=== PATIENT | female | born 1980 | race Two or more races ===

== ENCOUNTER 2019-01-14 11:15 | Emergency (ER) | payer MEDICARE, MEDICAID ==
[~2019-01-14] VITALS: Ht 167.6 cm; Wt 76.8 kg
[~2019-01-14 11:15] MED LIST: AMIT-189 PO; CALC500T43 PO; CLA10T PO; DIVA-81 PO; DOCU100T2 PO; HYDR-2561 PO; LISI-222 PO; LUBI24CA5 PO; PANT-47 PO; POLY17PO10 PO; ZOLP6.2523 PO; [UNRECOGNIZED DRUG - OTHER] PO
[2019-01-14] MEDS ORDERED: LIDOcaine 1% W/epiNEPHrine 1:100,000 20ml vial ONE (12:00)
[2019-01-14] MEDS ORDERED: TETanus/Pertussis (Acell)/Diphther VAC/PF (Tdap-Adult) 0.5ml syringe IMVAC ONE (12:20)
[2019-01-14 14:32] VITALS: BP 135/79
== END 2019-01-14 13:50 | disposition home or self-care (01) ==
LOC: ER 11:15
DX: S61.211A Laceration without foreign body of left index finger without damage to nail, initial encounter (principal); S01.81XA Laceration without foreign body of other part of head, initial encounter; Z88.6 Allergy status to analgesic agent; Z88.5 Allergy status to narcotic agent; Z79.899 Other long term (current) drug therapy; W01.198A Fall on same level from slipping, tripping and stumbling with subsequent striking against other object, initial encounter; Y93.01 Activity, walking, marching and hiking; Y92.89 Other specified places as the place of occurrence of the external cause; Y99.9 Unspecified external cause status
CPT/HCPCS: 12001; 90471; 99284

== ENCOUNTER 2021-05-16 17:53 | Emergency (ER) | payer MEDICARE, MEDICAID ==
[~2021-05-16] VITALS: Ht 167.6 cm; Wt 80.0 kg
[~2021-05-16 17:53] MED LIST changes: +CALC-932 PO; -CALC500T43 PO
[2021-05-16 19:35] LABS: BASOPHILS % (AUTO) 0.7 % (0-1); EOSINOPHILS % (AUTO) 0.6 % (0-6); HEMATOCRIT 41.5 % (35.0-45.0); HEMOGLOBIN 14.1 g/dl (12.0-16.0); LYMPHOCYTES # (AUTO) 1.5 X10'3 (1.1-4.8); LYMPHOCYTES % (AUTO) 20.6 % (21-51); MEAN CORPUSCULAR HEMOGLOBIN 33.5 PG (27.0-31.0); MEAN CORPUSCULAR VOLUME 98.7 FL (78-98); MEAN PLATELET VOLUME 7.3 FL (7.4-10.4); MONOCYTES # (AUTO) 0.9 X10'3 (0-0.9); NEUTROPHILS # (AUTO) 4.8 X10'3 (1.8-7.7); NEUTROPHILS % (AUTO) 66.1 % (42-75); PLATELET COUNT 243 X10'3 (140-440); RED CELL DISTRIBUTION WIDTH 13.9 % (11.5-14.5); WHITE BLOOD COUNT 7.3 X10'3 (4.5-11.0)
[2021-05-16 19:50] LABS: ALANINE AMINOTRANSFERASE 74 U/L (12-78); ALBUMIN 3.4 G/DL (3.4-5.0); ALBUMIN/GLOBULIN RATIO 0.8 (1.1-1.5); ALKALINE PHOSPHATASE 49 IU/L (46-116); ANION GAP 9 (8-16); ASPARTATE AMINO TRANSFERASE 76 U/L (10-37); BILIRUBIN,TOTAL 0.4 MG/DL (0.1-1.0); BLOOD UREA NITROGEN 19 MG/DL (7-18); CALCIUM 9.1 MG/DL (8.5-10.1); CHLORIDE 103 MMOL/L (99-107); CREATININE 0.95 MG/DL (0.40-0.90); GLUCOSE 113 MG/DL (70-104); POTASSIUM 4.2 MMOL/L (3.5-5.1); SODIUM 139 MMOL/L (135-145); TOTAL CARBON DIOXIDE 26.7 MMOL/L (24-32); TOTAL PROTEIN 7.6 G/DL (6.4-8.2); eGFR 65 ML/MIN
[2021-05-16 19:53] LABS: CLARITY,URINE SLIGHTLY CLOUDY (Clear); COLOR,URINE YELLOW (Yellow); GLUCOSE, URINE NEGATIVE (Neg); KETONES,URINE NEGATIVE (Neg); LEUKOCYTE ESTERASE ,URINE NEGATIVE (Neg); NITRITES, URINE NEGATIVE (Neg); OCCULT BLOOD,URINE TRACE-INTACT (Neg); PROTEIN,URINE NEGATIVE (Neg); UROBILINOGEN,URINE 0.2 E.U/dL (0.2-1.0)
[2021-05-16 19:54] LABS: URINE HCG NEGATIVE (NEG)
[2021-05-16 19:57] LABS: UA COLLECTION TYPE CLN CATCH MIDSTREAM
[2021-05-16 20:07] LABS: URINE AMPHETAMINE SCREEN NEGATIVE (Neg); URINE BARBITUATE SCREEN NEGATIVE (Neg); URINE BENZODIAZEPINES SCREEN NEGATIVE (Neg); URINE CANNABINOID SCREEN NEGATIVE (Neg); URINE COCAINE SCREEN NEGATIVE (Neg); URINE METHADONE SCREEN NEGATIVE (Neg); URINE OPIATE SCREEN NEGATIVE (Neg); URINE PHENCYCLIDINE SCREEN NEGATIVE (Neg)
[2021-05-16 20:12] LABS: ETHANOL < 0.010 GM/DL (0.0-0.010)
[2021-05-16 20:13] LABS: BACTERIA,URINE FEW /HPF (Neg); MUCUS STRANDS FEW /LPF (Neg); SQUAMOUS EPITHELIAL CELL,UR FEW /LPF (FEW)
[2021-05-16 20:14] LABS: RBC,URINE 0-2 /HPF (0-2); WBC,URINE 0-4 /HPF (0-4)
[2021-05-16 21:54] VITALS: BP 122/90
== END 2021-05-16 21:30 | disposition home or self-care (01) ==
LOC: ER 17:53
DX: R45.6 Violent behavior (principal); Z20.822 Contact with and (suspected) exposure to COVID-19; G80.9 Cerebral palsy, unspecified; F31.9 Bipolar disorder, unspecified; Z88.8 Allergy status to other drugs, medicaments and biological substances; Z79.899 Other long term (current) drug therapy
CPT/HCPCS: 36415; 80053; 80305; 80320; 81001; 81025; 84443; 85025; 87635; 99285; C9803; 99283

== ENCOUNTER 2022-08-12 16:21 | Emergency (ER) | payer MEDICARE, MEDICAID ==
[~2022-08-12] VITALS: Ht 167.6 cm; Wt 80.9 kg
[~2022-08-12 16:21] MED LIST changes: -AMIT-189 PO; +AMIT50TA15 PO
[2022-08-12 17:46] LABS: BASOPHILS # (AUTO) 0.1 X10'3 (0-0.2); BASOPHILS % (AUTO) 1.1 % (0-1); EOSINOPHILS # (AUTO) 0.1 X10'3 (0-0.9); EOSINOPHILS % (AUTO) 1.2 % (0-6); HEMATOCRIT 40.2 % (35.0-45.0); HEMOGLOBIN 13.8 g/dl (12.0-16.0); LYMPHOCYTES # (AUTO) 1.5 X10'3 (1.1-4.8); LYMPHOCYTES % (AUTO) 30.7 % (21-51); MEAN CORPUSCULAR HEMOGLOBIN 34.8 PG (27.0-31.0); MEAN CORPUSCULAR HGB CONC 34.3 g/dL (33.0-36.5); MEAN CORPUSCULAR VOLUME 101.5 FL (78-98); MEAN PLATELET VOLUME 7.3 FL (7.4-10.4); MONOCYTES # (AUTO) 0.7 X10'3 (0-0.9); MONOCYTES % (AUTO) 13.5 % (2-12); NEUTROPHILS # (AUTO) 2.7 X10'3 (1.8-7.7); NEUTROPHILS % (AUTO) 53.5 % (42-75); PLATELET COUNT 240 X10'3 (140-440); RED BLOOD COUNT 3.96 X10'6 (4.20-5.60); RED CELL DISTRIBUTION WIDTH 13.5 % (11.5-14.5)
[2022-08-12 17:52] LABS: ETHANOL < 0.010 GM/DL (0.0-0.010); TOTAL CARBON DIOXIDE 27.4 MMOL/L (24-32)
[2022-08-12 18:35] LABS: ALANINE AMINOTRANSFERASE 54 U/L (12-78); ALBUMIN 3.4 G/DL (3.4-5.0); ALBUMIN/GLOBULIN RATIO 0.8 (1.1-1.5); ALKALINE PHOSPHATASE 53 IU/L (46-116); ANION GAP 11 (8-16); ASPARTATE AMINO TRANSFERASE 55 U/L (10-37); BILIRUBIN,TOTAL 0.4 MG/DL (0.1-1.0); BLOOD UREA NITROGEN 16 MG/DL (7-18); BUN/CREATININE RATIO 17.6 (10.0-20.0); CALCIUM 9.5 MG/DL (8.5-10.1); CHLORIDE 100 MMOL/L (99-107); CREATININE 0.91 MG/DL (0.40-0.90); GLUCOSE 181 MG/DL (70-104); POTASSIUM 4.3 MMOL/L (3.5-5.1); SODIUM 138 MMOL/L (135-145); TOTAL PROTEIN 7.5 G/DL (6.4-8.2); eGFR 68 ML/MIN
[2022-08-12 20:33] LABS: COLOR,URINE YELLOW (Yellow); GLUCOSE, URINE NEGATIVE (Neg); KETONES,URINE NEGATIVE (Neg); LEUKOCYTE ESTERASE ,URINE NEGATIVE (Neg); NITRITES, URINE NEGATIVE (Neg); OCCULT BLOOD,URINE TRACE-INTACT (Neg); PROTEIN,URINE NEGATIVE (Neg); URINE HCG NEGATIVE (NEG); UROBILINOGEN,URINE 0.2 E.U/dL (0.2-1.0)
[2022-08-12 20:38] LABS: CLARITY,URINE SLIGHTLY CLOUDY (Clear); UA COLLECTION TYPE CLN CATCH MIDSTREAM
[2022-08-12 20:39] LABS: SQUAMOUS EPITHELIAL CELL,UR MANY /LPF (FEW)
[2022-08-12 20:40] LABS: BACTERIA,URINE 1+ /HPF (Neg); RBC,URINE 0-2 /HPF (0-2); WBC,URINE 0-4 /HPF (0-4)
[2022-08-12 20:54] LABS: URINE AMPHETAMINE SCREEN NEGATIVE (Neg); URINE BARBITUATE SCREEN NEGATIVE (Neg); URINE BENZODIAZEPINES SCREEN NEGATIVE (Neg); URINE CANNABINOID SCREEN NEGATIVE (Neg); URINE COCAINE SCREEN NEGATIVE (Neg); URINE METHADONE SCREEN NEGATIVE (Neg); URINE OPIATE SCREEN NEGATIVE (Neg); URINE PHENCYCLIDINE SCREEN NEGATIVE (Neg)
[2022-08-13 07:20] VITALS: BP 168/111
--- NOTE | 2022-08-13 10:29 | NUR ---
long-term and threatening to kill staff. "Danger to Others". [id number] by . Needs help to BR. Denies SI/HI at this time.
--- NOTE | 2022-08-13 10:50 | NUR ---
[facility], Sander, speaking with patient. Patient crying to Sander that she wants to go home. Sander explains that she cannot threaten to kill people. Patient verbalized understanding and promised she wouldn't do it again. Sander advises RN that this is all behavioral. Sander will speak to the long term to see if she is allowed back. Continue to monitor patient.
== END 2022-08-13 12:20 | disposition home or self-care (01) ==
LOC: ER 16:21
DX: F31.9 Bipolar disorder, unspecified (principal); G80.9 Cerebral palsy, unspecified; F79 Unspecified intellectual disabilities; Z88.5 Allergy status to narcotic agent; Z88.8 Allergy status to other drugs, medicaments and biological substances; Z79.1 Long term (current) use of non-steroidal anti-inflammatories (NSAID); Z79.2 Long term (current) use of antibiotics
CPT/HCPCS: 36415; 80053; 80305; 80320; 81001; 81025; 84443; 85025; 99285

== ENCOUNTER 2023-03-17 23:18 | Emergency (ER) | payer MEDICARE, MEDICAID ==
[~2023-03-17] VITALS: Ht 167.6 cm; Wt 79.1 kg
[2023-03-17 23:55] LABS: BASOPHILS # (AUTO) 0.1 X10'3 (0-0.2); BASOPHILS % (AUTO) 0.7 % (0-1); EOSINOPHILS # (AUTO) 0.1 X10'3 (0-0.9); EOSINOPHILS % (AUTO) 0.7 % (0-6); HEMATOCRIT 39.2 % (35.0-45.0); HEMOGLOBIN 13.9 g/dl (12.0-16.0); LYMPHOCYTES # (AUTO) 2.7 X10'3 (1.1-4.8); MEAN CORPUSCULAR HEMOGLOBIN 34.9 PG (27.0-31.0); MEAN CORPUSCULAR HGB CONC 35.5 g/dL (33.0-36.5); MEAN CORPUSCULAR VOLUME 98.5 FL (78-98); MEAN PLATELET VOLUME 7.3 FL (7.4-10.4); MONOCYTES # (AUTO) 0.8 X10'3 (0-0.9); NEUTROPHILS # (AUTO) 4.8 X10'3 (1.8-7.7); NEUTROPHILS % (AUTO) 56.6 % (42-75); PLATELET COUNT 307 X10'3 (140-440); RED BLOOD COUNT 3.98 X10'6 (4.20-5.60); RED CELL DISTRIBUTION WIDTH 13.9 % (11.5-14.5); WHITE BLOOD COUNT 8.4 X10'3 (4.5-11.0)
[2023-03-17 23:57] LABS: URINE HCG NEGATIVE (NEG)
[2023-03-18 00:04] LABS: TOTAL CARBON DIOXIDE 24.9 MMOL/L (24-32)
[2023-03-18 00:08] LABS: URINE AMPHETAMINE SCREEN NEGATIVE (Neg); URINE BARBITUATE SCREEN NEGATIVE (Neg); URINE BENZODIAZEPINES SCREEN NEGATIVE (Neg); URINE CANNABINOID SCREEN NEGATIVE (Neg); URINE COCAINE SCREEN NEGATIVE (Neg); URINE METHADONE SCREEN NEGATIVE (Neg); URINE OPIATE SCREEN NEGATIVE (Neg); URINE PHENCYCLIDINE SCREEN NEGATIVE (Neg)
[2023-03-18 00:41] LABS: ALANINE AMINOTRANSFERASE 63 U/L (12-78); ALBUMIN 3.5 G/DL (3.4-5.0); ALBUMIN/GLOBULIN RATIO 0.8 (1.1-1.5); ALKALINE PHOSPHATASE 62 IU/L (46-116); ANION GAP 9 (8-16); ASPARTATE AMINO TRANSFERASE 88 U/L (10-37); BILIRUBIN,TOTAL 0.5 MG/DL (0.1-1.0); BLOOD UREA NITROGEN 17 MG/DL (7-18); BUN/CREATININE RATIO 24.3 (10.0-20.0); CALCIUM 10.1 MG/DL (8.5-10.1); CHLORIDE 101 MMOL/L (99-107); GLUCOSE 153 MG/DL (70-104); SODIUM 135 MMOL/L (135-145); THYROID STIMULATING HORMONE 3.44 ulU/ml (0.34-4.50); TOTAL PROTEIN 8.1 G/DL (6.4-8.2); eCRCL 99 ML/MIN; eGFR > 90 ML/MIN
[2023-03-18 00:43] LABS: ETHANOL < 10 MG/DL (<10)
[2023-03-18 06:05] VITALS: BP_DIAS 88; RESP 18; O2SAT 97
[2023-03-18] MEDS ORDERED: LORA10TA7 PO (07:17)
[2023-03-18] MEDS ORDERED: LISI1TAB49 PO (07:17)
[2023-03-18] MEDS ORDERED: HALO2TAB PO (07:17)
[2023-03-18] MEDS ORDERED: ZOLP5TAB8 PO (09:04)
[2023-03-18] MEDS ORDERED: hydrOXYzine 25 MG tablet PO PRN (09:05)
[2023-03-18] MEDS: loratadine 10mg tablet PO SCH (10:36)
[2023-03-18] MEDS: calcium carbonate 500mg tablet PO SCH (10:36)
[2023-03-18] MEDS: divalproex sod 250mg ER (24-hour) tablet PO SCH (10:36)
[2023-03-18] MEDS: haloperidol 1mg tablet PO SCH (10:36)
[2023-03-18 10:37] VITALS: BP_SYST 150; PULSE 83
[2023-03-18] MEDS: lisinopril 5mg tablet PO SCH (10:37)
[2023-03-18] MEDS: docusate sod 100mg capsule PO PRN (10:38)
[2023-03-18 17:04] VITALS: TEMP 98.4
[2023-03-18] MEDS ORDERED: lubiprostone 24mcg capsule PO SCH (20:00)
[2023-03-18] MEDS ORDERED: zolpidem 5mg tablet PO SCH (21:00)
== END 2023-03-18 17:06 | disposition home or self-care (01) ==
LOC: ER 23:19
DX: G31.84 Mild cognitive impairment of uncertain or unknown etiology (principal); Z20.822 Contact with and (suspected) exposure to COVID-19; F31.9 Bipolar disorder, unspecified; Z88.8 Allergy status to other drugs, medicaments and biological substances; Z79.899 Other long term (current) drug therapy
CPT/HCPCS: 36415; 80053; 80305; 80320; 81025; 84443; 85025; 87811; 99285

== ENCOUNTER 2024-03-06 21:33 | Emergency (ER) | payer MEDICARE, MEDICAID ==
[~2024-03-06] VITALS: Ht 167.6 cm; Wt 80.5 kg
[~2024-03-06 21:33] MED LIST changes: +ZOLP5TAB8 PO; -ZOLP6.2523 PO
[2024-03-06 22:11] LABS: BASOPHILS # (AUTO) 0.1 X10'3 (0-0.2); BASOPHILS % (AUTO) 0.8 % (0-1); EOSINOPHILS # (AUTO) 0.3 X10'3 (0-0.9); EOSINOPHILS % (AUTO) 3.7 % (0-6); HEMATOCRIT 38.7 % (35.0-45.0); HEMOGLOBIN 13.7 g/dl (12.0-16.0); MEAN CORPUSCULAR HGB CONC 35.4 g/dL (33.0-36.5); MEAN CORPUSCULAR VOLUME 95.9 FL (78-98); MEAN PLATELET VOLUME 7.4 FL (7.4-10.4); MONOCYTES % (AUTO) 10.9 % (2-12); NEUTROPHILS # (AUTO) 6.5 X10'3 (1.8-7.7); NEUTROPHILS % (AUTO) 73.6 % (42-75); PLATELET COUNT 338 X10'3 (140-440); RED BLOOD COUNT 4.04 X10'6 (4.20-5.60); RED CELL DISTRIBUTION WIDTH 13.9 % (11.5-14.5); WHITE BLOOD COUNT 8.9 X10'3 (4.5-11.0)
[2024-03-06 22:32] LABS: ALBUMIN 3.3 G/DL (3.4-5.0); ANION GAP 11 (8-16); BLOOD UREA NITROGEN 12 MG/DL (7-18); BUN/CREATININE RATIO 16.7 (10.0-20.0); CALCIUM 9.3 MG/DL (8.5-10.1); CHLORIDE 103 MMOL/L (99-107); CREATININE 0.72 MG/DL (0.40-0.90); ETHANOL < 10 MG/DL (<10); SODIUM 139 MMOL/L (135-145); THYROID STIMULATING HORMONE 2.56 ulU/ml (0.34-4.50); TOTAL CARBON DIOXIDE 25.1 MMOL/L (24-32); eCRCL 95 ML/MIN; eGFR 89 ML/MIN
[2024-03-06 22:39] LABS: GLUCOSE 182 MG/DL (70-104); POTASSIUM 4.2 MMOL/L (3.5-5.1)
[2024-03-07 06:28] LABS: BILIRUBIN,URINE SMALL (Neg); CLARITY,URINE SLIGHTLY CLOUDY (Clear); COLOR,URINE YELLOW (Yellow); GLUCOSE, URINE NEGATIVE (Neg); KETONES,URINE 15 mg/dl (Neg); LEUKOCYTE ESTERASE ,URINE TRACE (Neg); NITRITES, URINE NEGATIVE (Neg); OCCULT BLOOD,URINE NEGATIVE (Neg); PROTEIN,URINE 30 mg/dl (Neg)
[2024-03-07 06:31] LABS: UA COLLECTION TYPE CLN CATCH MIDSTREAM
[2024-03-07 06:36] LABS: URINE AMPHETAMINE SCREEN NEGATIVE (Neg); URINE BARBITUATE SCREEN NEGATIVE (Neg); URINE BENZODIAZEPINES SCREEN NEGATIVE (Neg); URINE CANNABINOID SCREEN NEGATIVE (Neg); URINE COCAINE SCREEN NEGATIVE (Neg); URINE HCG NEGATIVE (NEG); URINE METHADONE SCREEN NEGATIVE (Neg); URINE OPIATE SCREEN NEGATIVE (Neg); URINE PHENCYCLIDINE SCREEN NEGATIVE (Neg)
[2024-03-07 06:45] LABS: BACTERIA,URINE 2+ /HPF (Neg); MUCUS STRANDS MODERATE /LPF (Neg); RBC,URINE NONE SEEN /HPF (0-2); SQUAMOUS EPITHELIAL CELL,UR MANY /LPF (FEW); WBC,URINE 30-50 /HPF (0-4)
[2024-03-07] MEDS ORDERED: DIVA500T2 PO (09:08)
[2024-03-07] MEDS ORDERED: RAME8TAB24 PO (09:08)
[2024-03-07] MEDS ORDERED: ROSU40TA PO (09:08)
[2024-03-07] MEDS ORDERED: DOCU-148 PO ×2 (09:08)
[2024-03-07] MEDS ORDERED: LISI-642 PO (09:08)
[2024-03-07] MEDS ORDERED: TRAZ-256 PO (09:08)
[2024-03-07] MEDS ORDERED: PSYL575P22 PO (09:08)
[2024-03-07] MEDS ORDERED: PROP40TA72 PO (09:08)
[2024-03-07] MEDS ORDERED: BENZ0.5T44 PO (09:08)
[2024-03-07] MEDS ORDERED: LORA10TA7 PO (09:08)
[2024-03-07] MEDS ORDERED: OMEP40CA21 PO (09:08)
[2024-03-07] MEDS ORDERED: CALC-3 PO (09:08)
[2024-03-07] MEDS ORDERED: METF-1203 PO (09:08)
[2024-03-07] MEDS ORDERED: OMEG100037 PO (09:08)
[2024-03-07] MEDS ORDERED: FENO134C21 PO (09:08)
[2024-03-07] MEDS ORDERED: RISP-32 PO (09:08)
[2024-03-07 12:08] VITALS: BP 97/61; PULSE 80; RESP 18; TEMP 98.4; O2SAT 95
[2024-03-07] MEDS ORDERED: benztropine 1mg tablet PO SCH (20:00)
[2024-03-07] MEDS ORDERED: OMEGA-3/DHA/EPA/FISH OIL 1 EACH CAPSULE.DR PO SCH (20:00)
[2024-03-07] MEDS ORDERED: metFORMIN 500mg tablet PO SCH (20:00)
[2024-03-07] MEDS ORDERED: divalproex sodium 500mg tablet.DR PO SCH (20:00)
[2024-03-07] MEDS ORDERED: risperiDONE 2mg tablet PO SCH (21:00)
[2024-03-07] MEDS ORDERED: RAMELTEON 8 MG PO SCH (21:00)
[2024-03-07] MEDS ORDERED: docusate sod 100mg capsule PO SCH (21:00)
[2024-03-07] MEDS ORDERED: traZODone 50mg tablet PO SCH (21:00)
[2024-03-08] MEDS ORDERED: atorvastatin 20mg tablet PO SCH (08:00)
[2024-03-08] MEDS ORDERED: PSYLLIUM HUSK PO SCH (08:00)
[2024-03-08] MEDS ORDERED: docusate sod 100mg capsule PO SCH (08:00)
[2024-03-08] MEDS ORDERED: propranolol 40mg tablet PO SCH (08:00)
[2024-03-08] MEDS ORDERED: fenofibrate 145mg tablet PO SCH (08:00)
[2024-03-08] MEDS ORDERED: [UNRECOGNIZED DRUG - OTHER] PO SCH (08:00)
[2024-03-08] MEDS ORDERED: loratadine 10mg tablet PO SCH (08:00)
[2024-03-08] MEDS ORDERED: pantoprazole 40mg Tablet.DR PO SCH (08:00)
[2024-03-08] MEDS ORDERED: lisinopril 5mg tablet PO SCH (08:00)
== END 2024-03-07 12:00 | disposition home or self-care (01) ==
LOC: ER 21:33
DX: R45.6 Violent behavior (principal); Z20.822 Contact with and (suspected) exposure to COVID-19; F31.9 Bipolar disorder, unspecified; Z88.8 Allergy status to other drugs, medicaments and biological substances; Z79.899 Other long term (current) drug therapy
CPT/HCPCS: 36415; 80048; 80305; 81001; 81025; 82948; 84443; 85025; 87811; 99285; G0480; 80320